=== PATIENT | male | born 1935 | race Hispanic/Latino ===

== ENCOUNTER 2016-08-11 06:26 | Outpatient (CLI) | payer BC, MEDICARE ==
[2016-08-11 06:40] LABS: Basophils % (Auto) 0.6 % (0.0-1.8); Eosinophils % (Auto) 4.1 % (0.0-4.3); Hematocrit 37.1 % (35.5-45.6); Hemoglobin 11.8 gm/dl (11.8-15.2); Mean Corpuscular HGB Conc 32 % (32-34); Mean Corpuscular Hemoglobin 26 pg (28-32); Mean Corpuscular Volume 82 fl (84-94); Platelet Count 201 K/mm3 (140-440); Red Blood Count 4.53 M/mm3 (3.65-5.03); White Blood Count 5.1 K/mm3 (4.5-11.0)
[2016-08-11 06:49] LABS: INR 0.99 (0.87-1.13)
[2016-08-11 06:55] LABS: Albumin 4.3 g/dL (3.9-5); Albumin/Globulin Ratio 1.3 %; BUN/Creatinine Ratio 20.62; Bilirubin,Total 0.3 mg/dL (0.1-1.2); Calcium 9.2 mg/dL (8.4-10.2); Chloride 105.2 mmol/L (98-107); Potassium 4.6 mmol/L (3.6-5.0); Total Protein 7.5 g/dL (6.3-8.2)
== END 2016-08-11 06:27 | disposition home or self-care (01) ==
LOC: LAB 06:26
PROVIDERS: ATTEND Internal Medicine Gastroenterology
DX: Z41.8 Encounter for other procedures for purposes other than remedying health state (principal); R73.09 Other abnormal glucose; Z79.899 Other long term (current) drug therapy; Z94.4 Liver transplant status; Z94.9 Transplanted organ and tissue status, unspecified
CPT/HCPCS: 36415; 80053; 80061; 85025; 85610

== ENCOUNTER 2016-10-21 06:31 | Outpatient (CLI) | payer BC, MEDICARE ==
[2016-10-21 07:03] LABS: Basophils % (Auto) 1.5 % (0.0-1.8); Eosinophils % (Auto) 3.9 % (0.0-4.3); Hematocrit 34.6 % (35.5-45.6); Hemoglobin 11.4 gm/dl (11.8-15.2); Mean Corpuscular HGB Conc 33 % (32-34); Mean Corpuscular Hemoglobin 27 pg (28-32); Mean Corpuscular Volume 81 fl (84-94); Platelet Count 199 K/mm3 (140-440); Red Blood Count 4.29 M/mm3 (3.65-5.03); Red Cell Distribution Width 17.9 % (13.2-15.2); White Blood Count 4.4 K/mm3 (4.5-11.0)
[2016-10-21 07:11] LABS: INR 1.06 (0.87-1.13)
[2016-10-21 07:17] LABS: Albumin 3.8 g/dL (3.9-5); Albumin/Globulin Ratio 1.4 %; BUN/Creatinine Ratio 22.1; Bilirubin,Total 0.2 mg/dL (0.1-1.2); Calcium 9.3 mg/dL (8.4-10.2); Chloride 104.3 mmol/L (98-107); Potassium 4.8 mmol/L (3.6-5.0); Total Protein 6.6 g/dL (6.3-8.2)
== END 2016-10-21 06:32 | disposition home or self-care (01) ==
LOC: LAB 06:31
PROVIDERS: ATTEND Internal Medicine Gastroenterology
DX: Z41.8 Encounter for other procedures for purposes other than remedying health state (principal); Z94.4 Liver transplant status; Z79.899 Other long term (current) drug therapy
CPT/HCPCS: 36415; 80053; 85025; 85610